=== PATIENT | female | born 1950 | race Caucasian/White ===

== ENCOUNTER 2016-07-08 12:28 | Emergency (ER) | payer MEDICARE, OTHER ==
[2016-07-08] MEDS ORDERED: SODIUM CHLORIDE 0.9% 1,000 ML ONE (13:03)
[2016-07-08] MEDS ORDERED: ACETAMINOPHEN 500 MG TABLET ONE (17:22)
== END 2016-07-08 18:07 | disposition home or self-care (01) ==
LOC: ED 12:28
DX: E86.0 Dehydration (principal); R00.0 Tachycardia, unspecified; R41.82 Altered mental status, unspecified; I10 Essential (primary) hypertension; E11.9 Type 2 diabetes mellitus without complications; Z79.84 Long term (current) use of oral hypoglycemic drugs
CPT/HCPCS: 99284 ×2; A9270; J7030